=== PATIENT | male | born 1970 | race Hispanic/Latino ===

== ENCOUNTER 2021-06-17 11:15 | Observation (INO) | payer OTHER ==
[~2021-06-17] VITALS: Ht 180.3 cm; Wt 71.2 kg
[2021-06-17] MEDS ORDERED: SODIUM CHLORIDE 0.9% 1000ML 1,000 ML IV STA (11:51)
[2021-06-17] MEDS ORDERED: ONDANSETRON HCL INJ 2MG/ML 2ML 2 MG/ML VIAL IV STA (11:51)
[2021-06-17 12:15] LABS: BASOPHILS % 0.2 % (0.0-1.0); EOSINOPHILS % 0.5 % (0.0-6.0); HEMATOCRIT 45.7 % (38.2-49.6); HEMOGLOBIN 15.7 g/dL (14.0-18.0); LYMPHOCYTES # (AUTO) 1.1 (1.0-3.2); LYMPHOCYTES % 19.5 % (18.0-39.1); MEAN CORPUSCULAR HEMOGLOBIN 33.1 pg (28-32); MEAN CORPUSCULAR HGB CONC 34.4 g/dL (31-35); MEAN CORPUSCULAR VOLUME 96.2 fL (81-99); MONOCYTES # (AUTO) 0.3 (0.2-0.8); MONOCYTES % 5.8 % (4.4-11.3); NEUTROPHILS % 73.6 % (38.7-80.0); PLATELET COUNT 200 x10e3/uL (140-360); RED BLOOD COUNT 4.75 x10e6/uL (4.3-5.7); RED CELL DISTRIBUTION WIDTH 13.2 % (11.7-14.4)
[2021-06-17 12:28] LABS: INR 0.95; PROTHROMBIN TIME 13.5 seconds (11.9-14.5)
[2021-06-17 12:29] LABS: PARTIAL THROMBOPLASTIN TIME 24.4 seconds (23.8-35.5)
[2021-06-17 12:38] LABS: ALBUMIN 4.7 g/dL (3.5-5.0); ALBUMIN/GLOBULIN RATIO 1.2 (0.8-2.0); CALCIUM 10.1 mg/dL (8.4-10.2); CREATININE, SERUM 1.2 mg/dL (0.72-1.25); MAGNESIUM 2.2 MG/DL (1.3-2.1)
[2021-06-17 12:45] LABS: CREATINE KINASE MB 1.2 ng/mL (0-5.0)
[2021-06-17] MEDS ORDERED: SODIUM CHLORIDE 0.9% 50ML 50 ML ONE (14:08)
[2021-06-17] MEDS ORDERED: IOPAMIDOL 370 MG/ML 200 ML INFUS..BTL INJ ONE (14:09)
[2021-06-17] MEDS ORDERED: ACETAMINOPHEN 325 MG TAB PO PRN (14:15)
[2021-06-17] MEDS ORDERED: ONDANSETRON HCL INJ 2MG/ML 2ML 2 MG/ML VIAL IV PRN ×2 (14:15→14:45)
[2021-06-17] MEDS ORDERED: DEXTROSE 50% SYRINGE 50 ML IV PRN (14:30)
[2021-06-17 14:44] LABS: CLARITY,URINE CLEAR (CLEAR); COLOR,URINE YELLOW (YELLOW); KETONES,URINE 2+ (NEGATIVE); LEUKOCYTE ESTERASE ,URINE NEGATIVE (NEGATIVE); NITRITE,URINE NEGATIVE (NEGATIVE); PROTEIN,URINE DIPSTICK NEGATIVE (NEGATIVE); URINE UROBILINOGEN 0.2 mg/dL (0.2 - 1)
[2021-06-17] MEDS ORDERED: NITROGLYCERIN 0.4 MG SUBL SL PRN (14:45)
[2021-06-17] MEDS ORDERED: Morphine 2mg Syringe 2 MG/ML SYR IV PRN (14:45)
[2021-06-17] MEDS: FAMOTIDINE 20 MG/2 ML VIAL IV SCH ×2 (15:18→22:35)
[2021-06-17] MEDS: LACTATED RINGER'S 1,000 ML INJ SCH ×2 (15:18→22:36)
[2021-06-17] MEDS: INSULIN LISPRO 100 UNIT/1 ML 3ML VIAL SQ SCH ×2 (16:30→21:45)
[2021-06-17] MEDS ORDERED: FAMOTIDINE 20 MG/2 ML VIAL IV SCH (17:00)
[2021-06-17 18:11] VITALS: BP 108/84
[2021-06-17 19:00] VITALS: BP 108/84
[2021-06-17 20:00] VITALS: BP 105/74
[2021-06-17 21:00] VITALS: BP 105/74
[2021-06-18] VITALS: BP 96/67
[2021-06-18] MEDS ORDERED: OXYBUTININ PO (01:06)
[2021-06-18] MEDS ORDERED: VENLAFAXINE HCL75 M2 PO (01:06)
[2021-06-18] MEDS ORDERED: LEVEMIR FL100 UNIT/1 SC (01:06)
[2021-06-18] MEDS ORDERED: NOVOLOG100 UNIT/1 SC (01:06)
[2021-06-18] MEDS ORDERED: ASPIRIN CHEW81 MG PO (01:18)
[2021-06-18 04:00] VITALS: BP 107/68
[2021-06-18 06:02] LABS: BASOPHILS % 0.2 % (0.0-1.0); EOSINOPHILS % 0.9 % (0.0-6.0); HEMATOCRIT 34.9 % (38.2-49.6); HEMOGLOBIN 12.1 g/dL (14.0-18.0); LYMPHOCYTES # (AUTO) 1.7 (1.0-3.2); LYMPHOCYTES % 37.9 % (18.0-39.1); MEAN CORPUSCULAR HEMOGLOBIN 33.7 pg (28-32); MEAN CORPUSCULAR HGB CONC 34.7 g/dL (31-35); MEAN CORPUSCULAR VOLUME 97.2 fL (81-99); MONOCYTES # (AUTO) 0.4 (0.2-0.8); MONOCYTES % 9.8 % (4.4-11.3); NEUTROPHILS # (AUTO) 2.3 (2.1-6.9); PLATELET COUNT 146 x10e3/uL (140-360); RED BLOOD COUNT 3.59 x10e6/uL (4.3-5.7); RED CELL DISTRIBUTION WIDTH 13.2 % (11.7-14.4)
[2021-06-18 06:21] LABS: ALBUMIN 3.4 g/dL (3.5-5.0); ALBUMIN/GLOBULIN RATIO 1.3 (0.8-2.0); ANION GAP 11.3 mmol/L (8-16); CALCIUM 9.1 mg/dL (8.4-10.2); CHOL/HDL RATIO 3.6 (3.9-4.7); CREATININE, SERUM 0.82 mg/dL (0.72-1.25); POTASSIUM 3.3 mmol/L (3.5-5.1)
[2021-06-18 06:23] LABS: ALANINE AMINOTRANSFERASE 9 IU/L (0-55); ALBUMIN 3.4 g/dL (3.5-5.0); ALKALINE PHOSPHATASE 66 IU/L (40-150); BILIRUBIN,DIRECT 0.4 mg/dL (0.0-0.5); MAGNESIUM 1.9 MG/DL (1.3-2.1)
[2021-06-18] MEDS: LACTATED RINGER'S 1,000 ML INJ SCH (06:40)
[2021-06-18 07:30] VITALS: BP 98/55
[2021-06-18] MEDS: INSULIN LISPRO 100 UNIT/1 ML 3ML VIAL SQ SCH ×2 (07:30→12:16)
[2021-06-18 08:07] VITALS: BP 98/55
[2021-06-18] MEDS ORDERED: ASPIRIN 81 MG ENTERIC COATED PO SCH (09:00)
[2021-06-18] MEDS ORDERED: METOCLOPRAMIDE HCL 10 MG/2ML VIAL IV ONE (09:30)
[2021-06-18] MEDS: FAMOTIDINE 20 MG/2 ML VIAL IV SCH (09:43)
[2021-06-18] MEDS ORDERED: POTASSIUM CHLORIDE 20 MEQ TAB CR PO ONE (10:30)
[2021-06-18] MEDS ORDERED: SUCRALFATE 1 GM TAB PO SCH (11:30)
[2021-06-18 11:57] VITALS: BP 105/66
[2021-06-18] MEDS ORDERED: PROTONIX IV40 MG IV (12:35)
[2021-06-18] MEDS ORDERED: CARAFATE1 GM PO (12:35)
[2021-06-18] MEDS ORDERED: PROPOFOL IV EMULSION 10 MG/ML 20 ML VIAL ONE (12:42)
[2021-06-18] MEDS ORDERED: LIDOCAINE HCL 2% LOCAL INJ 5 ML SDV VIAL INJ ONE (12:42)
[2021-06-18] MEDS ORDERED: FENTANYL CITRATE/PF 100MCG/2 ML INJ ONE (12:57)
[2021-06-18] MEDS ORDERED: MIDAZOLAM HCL 2 MG/2 ML VIAL ONE (12:57)
[2021-06-18] MEDS ORDERED: METOCLOPRAMIDE HCL 10 MG/2ML VIAL IV SCH (15:00)
[2021-06-18] MEDS ORDERED: PANTOPRAZOLE SO40 MG PO (16:42)
== END 2021-06-18 15:21 | disposition home or self-care (01) ==
LOC: ER 11:30 → ERHOLD 14:43 → MED/SURG3 18:04
PROVIDERS: ADMIT Internal Medicine; ATTEND Internal Medicine
DX: K29.40 Chronic atrophic gastritis without bleeding (principal); E11.65 Type 2 diabetes mellitus with hyperglycemia; E11.43 Type 2 diabetes mellitus with diabetic autonomic (poly)neuropathy; K31.84 Gastroparesis; K63.5 Polyp of colon; K63.89 Other specified diseases of intestine; K31.7 Polyp of stomach and duodenum; K20.90 Esophagitis, unspecified without bleeding; I10 Essential (primary) hypertension; E78.5 Hyperlipidemia, unspecified; E86.0 Dehydration; R10.84 Generalized abdominal pain; Z20.822 Contact with and (suspected) exposure to COVID-19; Z79.4 Long term (current) use of insulin; Z79.84 Long term (current) use of oral hypoglycemic drugs
CPT/HCPCS: 36415; 43239; 43251; 71045; 74177; 80053; 80061; 80076; 81001; 82550; 82553; 82948; 83690; 83735; 84484; 85025; 85610; 85730; 87086; 88305; 88312; 88342; 93005; 94799; 99284; G0378; J2001; J2250; J2405; J2765; J3010; J7030; J7121; Q9967; U0002

== ENCOUNTER 2024-07-30 02:25 | Emergency (ER) | payer OTHER ==
[~2024-07-30] VITALS: Ht 180.3 cm; Wt 71.7 kg
[~2024-07-30 02:25] MED LIST: ASPIRIN CHEW81 MG PO; CARAFATE1 GM PO; LEVEMIR FL100 UNIT/1 SC; NOVOLOG100 UNIT/1 SC; OXYBUTININ PO; PANTOPRAZOLE SO40 MG PO; PROTONIX IV40 MG IV; VENLAFAXINE HCL75 M2 PO
[2024-07-30 02:31] VITALS: TEMP 98.1
[2024-07-30 03:00] LABS: BASOPHILS % 0.3 % (0.0-1.0); HEMATOCRIT 45.2 % (38.2-49.6); HEMOGLOBIN 14.7 g/dL (14.0-18.0); LYMPHOCYTES # (AUTO) 2.1 (1.0-3.2); LYMPHOCYTES % 20.9 % (18.0-39.1); MEAN CORPUSCULAR HEMOGLOBIN 29.6 pg (28-32); MEAN CORPUSCULAR HGB CONC 32.5 g/dL (31-35); MEAN CORPUSCULAR VOLUME 91.1 fL (81-99); MONOCYTES # (AUTO) 0.3 (0.2-0.8); MONOCYTES % 3.1 % (4.4-11.3); NEUTROPHILS # (AUTO) 7.5 (2.1-6.9); NEUTROPHILS % 74.3 % (38.7-80.0); PLATELET COUNT 201 x10e3/uL (140-360); RED BLOOD COUNT 4.96 x10e6/uL (4.3-5.7); RED CELL DISTRIBUTION WIDTH 12.4 % (11.7-14.4); WHITE BLOOD COUNT 10.13 x10e3/uL (4.8-10.8)
[2024-07-30 03:16] LABS: ALBUMIN 4.7 g/dL (3.5-5.0); ALBUMIN/GLOBULIN RATIO 1.5 (0.8-2.0); ANION GAP 28.7 mmol/L (8-16); BILIRUBIN,TOTAL 3.1 mg/dL (0.2-1.2); CALCIUM 9.8 mg/dL (8.4-10.2); CREATININE, SERUM 1.21 mg/dL (0.72-1.25); POTASSIUM 4.7 mmol/L (3.5-5.1); TOTAL PROTEIN 7.8 g/dL (6.5-8.1)
[2024-07-30 03:21] LABS: TROPONIN I 0.002 ng/mL (0-0.300)
[2024-07-30] MEDS: ASPIRIN 81 MG CHEW TAB PO ONE (03:24)
[2024-07-30] MEDS: KETOROLAC TROMETHAMINE 30 MG/ML VIAL IV STA (03:25)
[2024-07-30] MEDS: SODIUM CHLORIDE 0.9% 1000ML 1,000 ML IV STA (03:25)
[2024-07-30 04:06] LABS: CORONAVIRUS COVID-19 AG NEGATIVE (NEGATIVE); INFLUENZA A AG NEGATIVE (NEGATIVE); INFLUENZA B AG NEGATIVE (NEGATIVE)
[2024-07-30] MEDS ORDERED: ONDANSETRON ODT4 MG PO (05:14)
[2024-07-30] MEDS ORDERED: ULTRAM 50MG50 MG PO (05:14)
[2024-07-30 05:15] VITALS: PULSE 96; RESP 17
[2024-07-30 05:48] VITALS: BP 121/73; O2SAT 100
[2024-08-03] MEDS ORDERED: ONDANSETRON ODT4 MG PO (10:16)
[2024-08-03] MEDS ORDERED: INSULIN AS100 UNIT/3 SC (10:16)
[2024-08-03] MEDS ORDERED: LANTUS 3ML100 UNITS/ SC (10:16)
[2024-08-03] MEDS ORDERED: CEPHALEXIN500 MG PO (10:16)
== END 2024-07-30 05:45 | disposition home or self-care (01) ==
LOC: ER 02:28
DX: R06.02 Shortness of breath (principal); R07.89 Other chest pain; R53.1 Weakness; E11.65 Type 2 diabetes mellitus with hyperglycemia; R53.81 Other malaise; R94.31 Abnormal electrocardiogram [ECG] [EKG]; Z96.652 Presence of left artificial knee joint
CPT/HCPCS: 36415; 71045; 80053; 82550; 82948; 83518; 83690; 83880; 84484; 85025; 87428; 93005; 99284; J1885; J7030

== ENCOUNTER 2024-07-30 19:36 | Inpatient (IN) | payer OTHER ==
[~2024-07-30] VITALS: Ht 180.3 cm; Wt 71.7 kg
[~2024-07-30 19:36] MED LIST changes: +ONDANSETRON ODT4 MG PO; +ULTRAM 50MG50 MG PO
[2024-07-30 19:53] LABS: BASOPHILS # (AUTO) 0.1 (0.0-0.1); BASOPHILS % 0.3 % (0.0-1.0); HEMATOCRIT 47.2 % (38.2-49.6); HEMOGLOBIN 14.8 g/dL (14.0-18.0); LYMPHOCYTES # (AUTO) 1.3 (1.0-3.2); LYMPHOCYTES % 7.5 % (18.0-39.1); MEAN CORPUSCULAR HEMOGLOBIN 29.6 pg (28-32); MEAN CORPUSCULAR HGB CONC 31.4 g/dL (31-35); MEAN CORPUSCULAR VOLUME 94.4 fL (81-99); MONOCYTES # (AUTO) 0.7 (0.2-0.8); MONOCYTES % 3.8 % (4.4-11.3); NEUTROPHILS # (AUTO) 15.1 (2.1-6.9); NEUTROPHILS % 86.8 % (38.7-80.0); PLATELET COUNT 266 x10e3/uL (140-360); RED CELL DISTRIBUTION WIDTH 12.2 % (11.7-14.4); WHITE BLOOD COUNT 17.36 x10e3/uL (4.8-10.8)
[2024-07-30] MEDS ORDERED: IOPAMIDOL 370 MG/ML 100 ML INFUS..BTL INJ ONE (20:04)
[2024-07-30] MEDS: SODIUM CHLORIDE 0.9% 1000ML 2,000 ML IV STA (20:07)
[2024-07-30 20:18] LABS: ALBUMIN 4.9 g/dL (3.5-5.0); ALBUMIN/GLOBULIN RATIO 1.4 (0.8-2.0); BILIRUBIN,TOTAL 2.4 mg/dL (0.2-1.2); CALCIUM 9.8 mg/dL (8.4-10.2); CREATININE, SERUM 1.74 mg/dL (0.72-1.25); TOTAL PROTEIN 8.4 g/dL (6.5-8.1)
[2024-07-30 20:22] LABS: TROPONIN I 0.004 ng/mL (0-0.300)
[2024-07-30 20:59] LABS: ABG HCO3 5 mmol/L (22-26); ABG PCO2 16 mmHg (35-45); ABG PH 7.11 (7.35-7.45); ABG PO2 122 mmHg (80-105); ABG TCO2 6
[2024-07-30] MEDS ORDERED: POTASSIUM CHLORIDE 20MEQ/100ML 200 ML IV PRN (21:15)
[2024-07-30] MEDS ORDERED: MAGNESIUM SULF 1GRAM/DEXTROSE 100 ML IV PRN (21:15)
[2024-07-30 22:10] VITALS: PULSE 101; RESP 20; TEMP 98.9
[2024-07-30 22:23] LABS: CLARITY,URINE CLEAR (CLEAR); COLOR,URINE YELLOW (YELLOW); GLUCOSE, URINE 500 (NEGATIVE); KETONES,URINE >=160 (NEGATIVE); LEUKOCYTE ESTERASE ,URINE NEGATIVE (NEGATIVE); NITRITE,URINE NEGATIVE (NEGATIVE); PH,URINE 5.5 (5 - 7); PROTEIN,URINE DIPSTICK NEGATIVE (NEGATIVE); URINE UROBILINOGEN 0.2 mg/dL (0.2 - 1)
[2024-07-30 22:24] LABS: BILIRUBIN,URINE NEGATIVE (NEGATIVE)
[2024-07-30] MEDS: SODIUM CHLORIDE 0.9% 1000ML 1,000 ML IV SCH (22:29)
[2024-07-30] MEDS: INSULIN REGULAR, HUMAN 3ML VL 100 UNIT in SODIUM CHLORIDE 0.9% 100 ML IV SCH (22:29)
[2024-07-30 22:35] VITALS: BP 144/75; PULSE 99; RESP 20; TEMP 98.1; O2SAT 100
[2024-07-30] MEDS: ONDANSETRON HCL INJ 2MG/ML 2ML 2 MG/ML VIAL IV PRN (22:50)
[2024-07-30] MEDS: Morphine 4mg INJECTION 4 MG/ML INJ IV PRN (22:51)
[2024-07-30 22:58] VITALS: BP 145/80; PULSE 101; RESP 20; TEMP 98.1; O2SAT 100
[2024-07-30 23:00] VITALS: BP 127/71; PULSE 101; RESP 20; O2SAT 100
[2024-07-30 23:05] LABS: WBC,URINE (MAN) 0-5 /HPF (0-5)
[2024-07-30 23:06] LABS: BACTERIA,URINE MODERATE /HPF; EPITHELIAL CELLS,URINE FEW /LPF; RBC,URINE 0-5 /HPF (0-5)
[2024-07-30 23:20] VITALS: BP 145/74; PULSE 101; RESP 17; TEMP 98.1; O2SAT 100
[2024-07-31] VITALS (25 sets, daily range): BP systolic 101–127; BP diastolic 63–81; PULSE 66–102; RESP 11–28; TEMP 98–98.6; O2SAT 99–100
[2024-07-31 02:04] LABS: CREATINE KINASE 57 IU/L (30-200)
[2024-07-31 02:09] LABS: ANION GAP 23.7 mmol/L (8-16); CALCIUM 8.9 mg/dL (8.4-10.2); CREATININE, SERUM 1.37 mg/dL (0.72-1.25); MAGNESIUM 2.3 MG/DL (1.3-2.1); POTASSIUM 4.7 mmol/L (3.5-5.1)
[2024-07-31 02:14] LABS: TROPONIN I < 0.001 ng/mL (0-0.300)
[2024-07-31] MEDS: DEXTROSE 5%/0.45% SOD CHL 1,000 ML IV SCH (06:08)
[2024-07-31 07:06] LABS: BASOPHILS % 0.1 % (0.0-1.0); HEMATOCRIT 36.6 % (38.2-49.6); HEMOGLOBIN 12.3 g/dL (14.0-18.0); LYMPHOCYTES # (AUTO) 0.8 (1.0-3.2); LYMPHOCYTES % 6.5 % (18.0-39.1); MEAN CORPUSCULAR HEMOGLOBIN 29.6 pg (28-32); MEAN CORPUSCULAR HGB CONC 33.6 g/dL (31-35); MEAN CORPUSCULAR VOLUME 88.2 fL (81-99); MONOCYTES # (AUTO) 0.8 (0.2-0.8); MONOCYTES % 6.2 % (4.4-11.3); NEUTROPHILS # (AUTO) 10.7 (2.1-6.9); NEUTROPHILS % 86.5 % (38.7-80.0); PLATELET COUNT 203 x10e3/uL (140-360); RED BLOOD COUNT 4.15 x10e6/uL (4.3-5.7); RED CELL DISTRIBUTION WIDTH 12.3 % (11.7-14.4); WHITE BLOOD COUNT 12.35 x10e3/uL (4.8-10.8)
[2024-07-31] MEDS ORDERED: PANTOPRAZOLE SOD 40 MG TABEC PO SCH (07:30)
[2024-07-31 07:35] LABS: ALBUMIN 3.7 g/dL (3.5-5.0); ALBUMIN/GLOBULIN RATIO 1.4 (0.8-2.0); ANION GAP 13.7 mmol/L (8-16); BILIRUBIN,TOTAL 1.9 mg/dL (0.2-1.2); CALCIUM 8.3 mg/dL (8.4-10.2); CREATININE, SERUM 1.06 mg/dL (0.72-1.25); POTASSIUM 3.7 mmol/L (3.5-5.1); TOTAL PROTEIN 6.3 g/dL (6.5-8.1)
[2024-07-31 08:15] LABS: TROPONIN I 0.008 ng/mL (0-0.300)
[2024-07-31 10:30] LABS: CHOL/HDL RATIO 2.5 (3.9-4.7)
[2024-07-31] MEDS: INSULIN LISPRO 100 UNIT/1 ML 3ML VIAL SQ SCH (11:30)
[2024-07-31] MEDS: INSULIN GLARGINE 100 UNITS/ML VIAL SQ SCH (11:44)
[2024-07-31 16:28] LABS: ANION GAP 13.7 mmol/L (8-16); CALCIUM 8.2 mg/dL (8.4-10.2); CREATININE, SERUM 0.87 mg/dL (0.72-1.25); MAGNESIUM 1.9 MG/DL (1.3-2.1); POTASSIUM 3.7 mmol/L (3.5-5.1)
[2024-07-31] MEDS: ENOXAPARIN SOD INJ 40 MG/0.4 ML SYR SC SCH (16:37)
[2024-07-31 16:59] LABS: TROPONIN I 0.011 ng/mL (0-0.300)
[2024-08-01] VITALS (27 sets, daily range): BP systolic 93–118; BP diastolic 61–82; PULSE 62–84; RESP 9–17; TEMP 97.6–98.1; O2SAT 97–100
[2024-08-01] MEDS: METOCLOPRAMIDE HCL 10 MG/2ML VIAL IV SCH (05:36)
[2024-08-01 06:57] LABS: BASOPHILS % 0.1 % (0.0-1.0); EOSINOPHILS % 0.1 % (0.0-6.0); HEMATOCRIT 34.5 % (38.2-49.6); HEMOGLOBIN 11.8 g/dL (14.0-18.0); LYMPHOCYTES # (AUTO) 1.4 (1.0-3.2); LYMPHOCYTES % 19.3 % (18.0-39.1); MEAN CORPUSCULAR HEMOGLOBIN 29.7 pg (28-32); MEAN CORPUSCULAR HGB CONC 34.2 g/dL (31-35); MEAN CORPUSCULAR VOLUME 86.9 fL (81-99); MONOCYTES # (AUTO) 0.6 (0.2-0.8); MONOCYTES % 8.2 % (4.4-11.3); NEUTROPHILS # (AUTO) 5.1 (2.1-6.9); NEUTROPHILS % 71.9 % (38.7-80.0); PLATELET COUNT 150 x10e3/uL (140-360); RED BLOOD COUNT 3.97 x10e6/uL (4.3-5.7); RED CELL DISTRIBUTION WIDTH 12.3 % (11.7-14.4); WHITE BLOOD COUNT 7.11 x10e3/uL (4.8-10.8)
[2024-08-01 07:19] LABS: ANION GAP 11.4 mmol/L (8-16); CALCIUM 7.9 mg/dL (8.4-10.2); CREATININE, SERUM 0.77 mg/dL (0.72-1.25)
[2024-08-01 07:20] LABS: POTASSIUM 3.4 mmol/L (3.5-5.1)
[2024-08-01] MEDS: POTASSIUM CHLORIDE 20 MEQ TAB CR PO ONE (08:08)
[2024-08-01] MEDS: DEXTROSE 50% SYRINGE 50 ML IV PRN (21:47)
[2024-08-02] VITALS (15 sets, daily range): BP systolic 92–116; BP diastolic 62–81; PULSE 64–97; RESP 9–26; TEMP 97.6–98.4; O2SAT 97–100
[2024-08-02 01:58] LABS: % IRON SATURATION 32 % (15-50); IRON 74 ug/dL (65-175); TOTAL IRON BINDING CAPACITY 234 ug/dL (261-478); TRANSFERRIN 167 mg/dL (174-364)
[2024-08-02 06:14] LABS: BASOPHILS % 0.2 % (0.0-1.0); EOSINOPHILS % 0.7 % (0.0-6.0); HEMATOCRIT 36.9 % (38.2-49.6); HEMOGLOBIN 12.4 g/dL (14.0-18.0); LYMPHOCYTES # (AUTO) 1.6 (1.0-3.2); LYMPHOCYTES % 35.2 % (18.0-39.1); MEAN CORPUSCULAR HEMOGLOBIN 29.6 pg (28-32); MEAN CORPUSCULAR HGB CONC 33.6 g/dL (31-35); MEAN CORPUSCULAR VOLUME 88.1 fL (81-99); MONOCYTES # (AUTO) 0.5 (0.2-0.8); MONOCYTES % 11.4 % (4.4-11.3); NEUTROPHILS # (AUTO) 2.3 (2.1-6.9); NEUTROPHILS % 52.1 % (38.7-80.0); PLATELET COUNT 139 x10e3/uL (140-360); RED BLOOD COUNT 4.19 x10e6/uL (4.3-5.7); RED CELL DISTRIBUTION WIDTH 12.3 % (11.7-14.4); WHITE BLOOD COUNT 4.49 x10e3/uL (4.8-10.8)
[2024-08-02 06:38] LABS: ANION GAP 11.7 mmol/L (8-16); CALCIUM 8.4 mg/dL (8.4-10.2); CREATININE, SERUM 0.68 mg/dL (0.72-1.25); POTASSIUM 3.7 mmol/L (3.5-5.1)
[2024-08-02] MEDS: SODIUM BICARBONATE 650 MG TAB PO SCH ×2 (10:15→14:40)
[2024-08-03] VITALS: BP 95/65; PULSE 83; RESP 18; TEMP 98.6; O2SAT 95
[2024-08-03 04:00] VITALS: BP 100/68; PULSE 87; RESP 17; TEMP 98.1; O2SAT 100
[2024-08-03] MEDS: PROPOFOL IV EMULSION 10MG/ML 100 ML ONE (09:42)
[2024-08-03 09:48] VITALS: BP 100/68; PULSE 87; RESP 17; TEMP 98.1; O2SAT 100
[2024-08-03] MEDS ORDERED: LANTUS 3ML100 UNITS/ SC (10:16)
[2024-08-03] MEDS ORDERED: ONDANSETRON ODT4 MG PO (10:16)
[2024-08-03] MEDS ORDERED: CEPHALEXIN500 MG PO (10:16)
[2024-08-03] MEDS ORDERED: INSULIN AS100 UNIT/3 SC (10:16)
[2024-08-03] MEDS ORDERED: INSULIN LISPRO 100 UNIT/1 ML 3ML VIAL SQ SCH (11:30)
[2024-08-03 12:00] VITALS: BP 115/76; PULSE 73; RESP 18; TEMP 97.4; O2SAT 100
== END 2024-08-03 12:15 | disposition home or self-care (01) | DRG 638 ==
LOC: ER 19:41 → ERHOLD 21:34 → ICU 22:19 → MED/SURG3 08-02 10:40
PROVIDERS: ADMIT Internal Medicine; ATTEND Internal Medicine
PROC: 4A033R1 Measurement of Arterial Saturation, Peripheral, Percutaneous Approach (ICD-10-PCS; principal; 2024-07-30)
DX: E11.10 Type 2 diabetes mellitus with ketoacidosis without coma (principal); N17.9 Acute kidney failure, unspecified; N39.0 Urinary tract infection, site not specified; E11.22 Type 2 diabetes mellitus with diabetic chronic kidney disease; K76.0 Fatty (change of) liver, not elsewhere classified; K29.70 Gastritis, unspecified, without bleeding; D64.9 Anemia, unspecified; N18.9 Chronic kidney disease, unspecified; R53.81 Other malaise; Z79.4 Long term (current) use of insulin; Z79.82 Long term (current) use of aspirin
CPT/HCPCS: 36415; 36600; 71260; 74177; 80048; 80053; 80061; 81001; 82550; 82607; 82746; 82805; 82948; 83036; 83540; 83690; 83735; 83880; 84466; 84484; 85025; 85045; 93005; 99252; 99284; J0696; J1650; J1815; J2270; J2405; J2470; J2765; J7030; J7050; J7799; Q9967